=== PATIENT | male | born 1980 | race Caucasian/White ===

== ENCOUNTER → 2024-05-12 10:56 | Outpatient (REF) | payer OTHER, SELFPAY | LOC: PAVMRI 10:56 | PROVIDERS: ATTENDING PHYSICIAN Orthopaedic Surgery; FAMILY PHYSICIAN Family Medicine | DX: S83.242A Other tear of medial meniscus, current injury, left knee, initial encounter (principal) | CPT/HCPCS: 70030; 73721 ==

== ENCOUNTER 2025-05-20 12:00 | Inpatient (IN) | payer OTHER, SELFPAY ==
[2025-05-19] VITALS (7 sets, daily range): BP systolic 113–143; BP diastolic 70–94; BMI 49.1
[2025-05-19 16:04] LABS: Glucose - Point of Care 99 mg/dl (70-99)
[2025-05-19 16:12] LABS: Hematocrit 39.9 % (39.0-52.0); Hemoglobin 12.1 g/dL (13.0-18.0); Mean Corp Hgb Conc. 30.3 g/dL (33.0-37.0); Mean Corpuscular Volume 66.9 fL (80.0-94.0); Nucleated Red Blood Cells % 0 % (-); Platelet Count 263 10^3/uL (130-400); Red Cell Dist. Width 18.4 % (11.5-14.5)
--- NOTE | 2025-05-19 16:21 | ED.GENMED ---
History of Present Illness
General
Chief Complaint: Fainting/Passed Out
Source: patient
Exam Limitations: none
Time Seen by Provider: 05/19/25 15:58
History of Present Illness
History of Present Illness:
44yoM with a history of type 2 diabetes, hyperlipidemia, obesity, and NORTH on CPAP presenting via EMS for evaluation after a syncopal episode. Patient was on his lunch break today and was sitting in his friend's car watching a YouTube video. He
suddenly started to feel lightheaded like his blood sugar was low. He then lost consciousness and was unconscious for about 1 minute. His friend told him it looked like he was choking. When he came to, patient ambulated out of his friend's car
into his car and again started to feel dizzy. His boss told him to sit down and called 911. Patient had a third episode of lightheadedness when EMS arrived. Initial EKG showed a heart rate of 37 BPM and he was given 1mg IV atropine with
improvement. He denies any dizziness currently but does feel fatigued. He denies any associated chest pain, palpitations, shortness of breath.
Past History
Past History
ED Past Medical History: Other (Seasonal allergies)
ED Past Surgical History: Urological; Negative Cholecystectomy
Social History
Tobacco: Non-smoker
Alcohol: None
Drug: None
Personal: Single
Living: with family
Employment: Employed
Family History
Family History: Other (Noncontributory)
Phy Exam
General Physical Exam
General Presentation: well appearing and no apparent distress
General Skin: warm and dry
General Habitus: normal and obese
General Mental: alert
ENT Exam
ENT Exam: normocephalic
Cardiovascular Exam
Cardiovascular Exam: no edema, no murmur and tachycardia
Pulmonary Exam
Pulmonary Exam: lungs clear, no respiratory distress, no rales, no crackles, no rhonchi and no wheezing
Neurological Exam
Neurological Exam: alert
[place] Coma Scale
Eye Opening: Spontaneous
Verbal Response: Oriented
Motor Response: Obeys Commands
GCS Total Score: 15
Skin Exam
Skin Exam: normal color and warm/dry
Psychiatric Exam
Psychiatric Exam: normal mood/affect
Course
Orders/Labs/Results
Orders:
Orders
05/19/25 15:50
Electrocardiogram (*1) Urgent
Reason for Study: Vertigo / Dizzy
EKG- Treatment ONCE
05/19/25 16:03
Complete Blood Count/With Diff Urgent
05/19/25 16:20
Add On- LAB Urgent
Tests Added?: TSH, magnesium
Cardiac Monitoring- Treatment ONCE
05/19/25 16:37
Comprehensive Metabolic Panel Urgent
Magnesium Urgent
Comment: ADD ON
TSH Urgent
Comment: ADD ON
Troponin I Urgent
05/19/25 17:13
Lyme Progressive Urgent
Abnormal Lab Results
05/19/25 05/19/25
16:03 16:37
WBC 12.0 H 10^3/uL
(4.8-10.8)
Hgb 12.1 L g/dL
(13.0-18.0)
MCV 66.9 L fL
(80.0-94.0)
MCH 20.3 L pg
(27.0-31.0)
MCHC 30.3 L g/dL
(33.0-37.0)
RDW 18.4 H %
(11.5-14.5)
Absolute Neuts (auto) 8.3 H 10^3/uL
(1.4-6.5)
Absolute Monos (auto) 0.7 H 10^3/uL
(0.1-0.6)
Chloride 109 H mmol/L
(98-107)
Glucose 109 H mg/dl
(70-99)
ALT 57 H U/L
(0-50)
05/19/25 16:03
05/19/25 16:37
Vital Signs
Initial and Last Documented VS:
Initial Vital Signs
Temp Pulse Resp BP Pulse Ox
98.0 F 57 22 121/70 98
05/19/25 15:48 05/19/25 15:48 05/19/25 15:48 05/19/25 15:48 05/19/25 15:48
Last Documented Vital Signs
Temp Pulse Resp BP Pulse Ox
98.0 F 98 22 119/83 99
05/19/25 15:48 05/19/25 17:15 05/19/25 17:15 05/19/25 17:00 05/19/25 17:15
MDM/Problems Addressed
Differential Diagnosis Includes:
44yoM here after a syncopal episode followed by 2 near syncopal episodes. S/p 1mg IV atropine prehospital for a HR of 37. Now feeling much better and HR around 100 during initial exam. Prehospital EKG was reviewed which initially showed
third-degree heart block. Patient in normal sinus rhythm on the monitor and EKG on arrival also confirms NSR. Differential diagnosis includes but is not limited to: Intermittent heart block, electrolyte abnormality, thyroid dysfunction
Initial ED plan: Check cardiac labs, magnesium, and TSH. Will consult cardiology.
*Pulse Oximetry
SaO2: 98
Oxygen Mode of Delivery: Room air
Patient hypoxic: no (98%)
*EKG
Interpreted by ED Provider?: Yes
EKG Intrepretation Date: 05/19/25
Heart Rate: 56
Rate: bradycardiac
Rhythm: sinus
[place]: normal axis
Interval: normal interval
QRS Pattern: right bundle branch block
Ischemia: no ischemia
*Critical Care Note
Total Time (30-74mins, 75-104mins- exclusive of procedures): Not Applicable
Update Note
Update Note:
Labs overall unremarkable including normal electrolytes, TSH, and troponin. Patient evaluated by cardiology and plan is for cardiac monitoring and echocardiogram in the morning. Patient admitted for further evaluation and management.
ED Attending Note
-
Portions of this chart may have been created with voice recognition software.� Occasional wrong word or��sound alike� substitutions may have occurred due to the inherent limitations of voice recognition software.
Discharge Plan
Departure
Patient Disposition: Admit
Date of Disposition: 05/19/25
Time of Disposition: 17:36
Presentation/result/management discussed w/ accepting MD/DO: Hospitalist
Discharge Problem:
Syncope, Third degree heart block
Prescriptions:
No Action
famotidine 40 MG tablet
40 mg PO HS
loratadine 10 MG tablet
10 mg PO PRN PRN (Reason: allergies)
ibuprofen 200 MG tablet
600 mg PO QIDPRN PRN (Reason: pain) Qty: 1 0RF
oxycodone-acetaminophen 5 MG/325 MG tablet
1 - 2 tab PO Q4HPRN PRN (Reason: pain not relieved by ibuprofen) Qty: 15 0RF
Interventions
Interventions:
*Risk Screen - Suicide Last Done: 05/19/25 15:48
*General Assessment Last Done: 05/19/25 15:48
*Neglect/Abuse Screening Last Done: 05/19/25 15:48
*ED- Fall Risk Assessment Last Done: 05/19/25 15:48
ED- Cardiac Assessment Last Done: 05/19/25 16:50
ED- Neurological Assessment Last Done: 05/19/25 16:50
Discharge Date and Time
Print Language: SERBIAN
[2025-05-19 17:04] LABS: ALT (SGPT) 57 U/L (0-50); AST (SGOT) 42 U/L (17-59); Albumin 4.0 g/dl (3.5-5.0); Alkaline Phosphatase 69 U/L (38-126); Blood Urea Nitrogen 20 mg/dl (9-20); Calcium 8.7 mg/dl (8.4-10.2); Carbon Dioxide 25 mmol/L (22-30); Chloride 109 mmol/L (98-107); Estimated Creatinine Clearance > 125 ml/min; Glucose 109 mg/dl (70-99); Magnesium 2.1 mg/dl (1.6-2.3); Potassium 3.9 mmol/L (3.5-5.1); Sodium 140 mmol/L (135-145); Total Protein 7.2 g/dl (6.3-8.2); eGFR > 60.00
[2025-05-19 17:17] LABS: Troponin I < 0.012 ng/ml
--- NOTE | 2025-05-19 17:21 | CON.CAR ---
Consultation
Consultation Request
Date/Time Consultation Requested: 05/19/25 4:30pm
Date/Time Consultation Performed: 05/19/25 5:15pm
Requesting Provider: MITZI Cheng
Performing Provider: Brady Foley MD
Reason for Consultation: syncope
Medical History
-
Chief Complaint: syncope
History of Present Illness:
44-year-old male with past medical history of type 2 diabetes, obesity, hypertension, and hyperlipidemia presents with an episode of syncope. Patient was sitting in his car watching YouTube when he suddenly felt lightheaded and passed out for about
1 minute. When he awoke they called 911 he was found to be with a heart rate of 37 and incomplete heart block. He was given IV atropine 1 mg and clinically felt much improved. Upon arrival in the emergency room he was in sinus rhythm with a right
bundle branch block. He denies any chest pain, shortness of breath, orthopnea, PND, edema. He has no fevers or chills. [place] was in the [place] and does have some mosquito bites was unaware of any tick bites. He has no known history of
thyroid disease. He does have sleep apnea and wears CPAP. He is comfortable now with no symptoms. He states he does not check her sugar at home but upon arrival emerged with sugar was normal.
Past Medical History
Past Medical History: HTN, Hypercholesterolemia and Other (Obstructive sleep apnea, obesity)
Past Surgical History: Urological
Social History
Tobacco: Non-Smoker
Alcohol: None
Drug: None
Personal: Single
Living: With Family
Employment: Employed
Family History
Family History: Hypertension
Allergies / Home Medications
Allergy/AdvReac Type Severity Reaction Status Date / Time
seasonal allergies Allergy nasal Uncoded 05/19/25 15:48
congestion
�Medication �Instructions �Recorded �Confirmed �Type
famotidine 40 mg tablet 40 mg PO HS Gastrointestinal issue 02/24/20 03/04/20 History
loratadine 10 mg tablet 10 mg PO PRN PRN allergies 03/03/20 03/04/20 History
ibuprofen 200 mg tablet 600 mg (3 x 200 mg) PO QIDPRN PRN 03/04/20 Rx
pain #1 tab
oxycodone-acetaminophen 5 mg-325 1 - 2 tab PO Q4HPRN PRN pain not 03/04/20 Rx
mg tablet relieved by ibuprofen #15 tabs
Review of Systems
-
History Source: Patient
Constitutional: Fatigue
EENT: No Symptoms
Respiratory: No Symptoms
Cardiac: Syncope
Abdomen/GI: No Symptoms
: No Symptoms
Musculoskeletal: Muscle Stiffness
Skin: Rash
Neurological: No Symptoms
Endocrine: No Symptoms
Hematologic/Lymphatic: No Symptoms
Physical Exam
Vital Signs
Temp Pulse Resp BP Pulse Ox
98.0 F 98 19 113/75 97
05/19/25 15:48 05/19/25 16:45 05/19/25 16:45 05/19/25 16:00 05/19/25 16:45
Lab Results
05/19/25 16:03
05/19/25 16:37
Troponin I < 0.012 ng/ml 05/19/25 16:37
Physical Exam
General: Well Developed, Well Nourished and No Apparent Distress
HEENT: Normocephalic and Anicteric
Respiratory: Clear and Non Labored Respirations
Cardiac: S1/S2 and Regular Rhythm
GI: Soft, Non Tender and Non Distended
Genito-urinary: No Costovertebral Tender
Skin: Warm, Dry and Rash (Diffuse papules on bilateral lower extremities,)
Neuro: Awake
Psych: Calm
Impression / Plan
-
Assessment:
Syncope with complete heart block and escape rhythm at 37
Status post atropine x 1 now in normal sinus rhythm with right bundle branch block
Diabetes type 2
Hypertension
Hyperlipidemia
Obstructive sleep apnea on CPAP
Obesity
Plan:
He presents with syncope and was found to be in complete heart block with an escape rate of 37 bpm. He was given atropine and feels much better.
Admit to telemetry. Continue to observe and follow his rhythm. Check TSH and Lyme profile. He was recently in the [place] but denies any clear tick bites.
He is not on any AV paulette blockers.
Would hold blood pressure medication for now.
Check troponin and check echo in AM.
Would hold off on permanent pacing for now based on his age but we will reassess in AM.
Continue CPAP at night with his history of sleep apnea.
Data Reviewed
-
EKG: Report Reviewed by me
Medical Tests (Nuc Med, Echo etc): Report Reviewed by me
Labs: Labs Reviewed by me
[2025-05-19 17:43] LABS: TSH 1.19 uIU/ml (0.47-4.68)
--- NOTE | 2025-05-19 17:50 | HPS.HSE ---
Addendum entered and electronically signed by Marcos Burnett MD 05/20/25 09:34:
44-year-old male with a past medical history of obesity, type 2 diabetes, and obstructive sleep apnea presents with syncope, and was found to be in third-degree heart block. He received IV atropine in the ED, and his heart rate is improved. He has
been seen by cardiology. Will monitor closely in the IVU, hold hydrochlorothiazide, trend troponins, check echocardiogram, and await further recommendations by cardiology. He brought his CPAP machine, continue home CPAP at bedtime. Parents at
bedside and updated.
I have personally seen and examined the patient on 05/19/25, and agree with the plan of care as documented by Bhumika Harrell PA-C.
Advance care planning discussed, patient is a full code.
All other issues as outlined by the advanced care practitioner.
Total time spent to see the patient on the floor, examine the patient, review data and lab results, discuss treatment plan with patient, nursing staff around 76 minutes.
Original Note:
Family Physician
-
Family Physician: Karson Silverman
Chief Complaint
-
Syncope
History of Present Illness
Patient is a 44 y/o male past medical history of hypertension, hyperlipidemia, diabetes mellitus, obstructive sleep apnea and morbid obestiy who presents following a syncopal episodes. Patient reports he was sitting in his when developed
dizziness/lightheadedness. He reports he did pass out for about a minute and his friend had to shake him to wake him up. He had a a second episode of dizziness, but did not pass out. They called EMS who then found patient to have a heart rate of
37 with incomplete heart block. He was given IV atropine 1mg. Upon my evaluation patient is feeling much improved and heart rate is much improved in the 90s. He denies any chest pain or palpitations. He denies any similar episode in the past. He
states he [place] in [place] recently and got a lot of mosquito bites but denies any tick bites.
Medical History
Past Medical History
Past Medical History: Reports Other
Additional Past Medical History:
Diabetes Mellitus, Type II
Essential Hypertension
Hyperlipidemia
Obstructive Sleep Apnea
Morbid Obesity due to Excess Calories
Past Surgical History: Reports Other
Additional Past Surgical History:
Cholecystectomy
Penile Surgery
[place] Teeth Extraction
Social History
Tobacco: Non-smoker
Alcohol: None
Family History
Family History: Not pertinent
Allergies / Home Medications
Allergies reflects when Allergies were last updated in [facility].
Home Medications with original date entered in [facility]
Allergy/Medication List:
Allergies
Allergy/AdvReac Type Severity Reaction Status Date / Time
seasonal allergies Allergy nasal Uncoded 05/19/25 15:48
congestion
Home Medications
biotin 1 mg tablet 1 mg PO DAILY 05/19/25
empagliflozin 10 mg tablet (Jardiance) 10 mg PO DAILY 05/19/25
hydrochlorothiazide 12.5 mg capsule 12.5 mg PO DAILY 05/19/25
ibuprofen 200 mg tablet (Advil) 400 mg PO Q6HPRN PRN headaches 05/19/25
loratadine 10 mg tablet (Claritin) 10 mg PO DAILY 05/19/25
rosuvastatin 5 mg tablet (Crestor) 5 mg PO DAILY 05/19/25
therapeutic multivitamin 1 tab PO DAILY 05/19/25
Review of Systems
-
A 12 point ROS was completed and negative except as noted: Yes
Constitutional: Denies Fever
Respiratory: Denies Cough or Trouble Breathing
Cardiac: Reports See HPI
Physical Exam
Vital Signs
Vital Signs
Temp Pulse Resp BP Pulse Ox
98.0 F 98 22 119/83 99
05/19/25 15:48 05/19/25 17:15 05/19/25 17:15 05/19/25 17:00 05/19/25 17:15
Physical Exam
General: Comfortable, Conversant and Morbidly Obese
HEENT: Anicteric and Moist mucous membranes
Respiratory: Clear and Non Labored Respirations
Cardiac: S1/S2 and Regular Rhythm; No Bradycardia
GI: Soft and Non Tender
Rectal: Deferred by Provider
Musculoskeletal: No Clubbing, No Cyanosis and No Edema
Skin: Warm and Dry
Neuro: Awake, Alert and Nonfocal/grossly intact
Psych: Calm
Laboratory Results
-
05/19/25 16:03
05/19/25 16:37
Laboratory Results
Total Bilirubin 0.7 mg/dl (0.2-1.3) 05/19/25 16:37
AST 42 U/L (17-59) 05/19/25 16:37
ALT 57 U/L (0-50) H 05/19/25 16:37
Alkaline Phosphatase 69 U/L (38-126) 05/19/25 16:37
Troponin I < 0.012 ng/ml 05/19/25 16:37
Data Reviewed
-
Lab Data: Labs Reviewed by me
Impression/Plan
-
Syncope with Complete Heart Block
-Patient evaluated by cardiology in the emergency department
-Patient is back in normal sinus rhythm following dose of atropine
-TSH within normal range
-Await Lyme Test
-Monitor on Telemetry
Diabetes Mellitus, Type II
-Continue Jardiance
-Monitor sugars and continue coverage insulin
Essential Hypertension
-Hold HCZT
-Monitor blood pressure
Hyperlipidemia
-Continue Crestor
Obstructive Sleep Apnea
-Continue CPAP - Patient will have family bring from home
Morbid Obesity due to Excess Calories
-Affects all aspects of care
DVT proph: SCDs
Code Status: Full Code
--- NOTE | 2025-05-19 20:34 | W.PN.UPDATE ---
Update Note
Progress Note Update
For billing purposes.
[2025-05-19] MEDS: TRIAMCINOLONE ACETONIDE 0.1% CREAM 1 APPLIC TOPICAL (21:41)
--- NOTE | 2025-05-19 23:43 | PTCARENOTE ---
Received pt from ED RN into room 2255 via wheelchair at approx 2100. Tele placed on pt, SR w/ HR in the 70's. pt denies any CP, SOB, or lightheadedness/dizziness. CPAP applied by RT. Oriented pt to room and call justin. Encouraged pt to call RN with
any questions/concerns or if needing assistance ambulating. Call justin within reach.
~2300 pt now resting in bed, SB w/ HR in the 50's. VS obtained and BP stable.
[2025-05-20 00:09] LABS: Glucose - Point of Care 127 mg/dl (70-99)
[2025-05-20 03:32] VITALS: BP 136/86
[2025-05-20 04:07] LABS: Hematocrit 40.6 % (39.0-52.0); Hemoglobin 12.3 g/dL (13.0-18.0); Mean Corp Hgb Conc. 30.3 g/dL (33.0-37.0); Mean Corpuscular Volume 66.7 fL (80.0-94.0); Platelet Count 284 10^3/uL (130-400); Red Cell Dist. Width 17.9 % (11.5-14.5)
[2025-05-20 04:55] LABS: Blood Urea Nitrogen 19 mg/dl (9-20); Calcium 8.8 mg/dl (8.4-10.2); Carbon Dioxide 25 mmol/L (22-30); Chloride 109 mmol/L (98-107); Estimated Creatinine Clearance > 125 ml/min; Glucose 110 mg/dl (70-99); Potassium 4.1 mmol/L (3.5-5.1); Sodium 140 mmol/L (135-145); eGFR > 60.00
[2025-05-20 08:08] VITALS: BP 138/88
[2025-05-20 08:36] LABS: Glucose - Point of Care 102 mg/dl (70-99)
[2025-05-20] MEDS: CRESTOR 5 MG PO (08:41)
[2025-05-20] MEDS: TRIAMCINOLONE ACETONIDE 0.1% CREAM 1 APPLIC TOPICAL ×2 (08:42→20:02)
--- NOTE | 2025-05-20 09:30 | W.PN.HOSP.TC ---
Today's Communication/Plan
-
see bold
Assessment / Plan
Assessment / Plan
HPI: 44-year-old male with a past medical history of obesity, type 2 diabetes, and obstructive sleep apnea presents with syncope, and was found to be in third-degree heart block. He received IV atropine in the ED, and his heart rate is improved.
Syncope with Complete Heart Block
-Patient is back in normal sinus rhythm following dose of atropine
-TSH within normal range
-Appreciate cardiology input, follow-up cardiac MRI results, Lyme test
-Based on cardiac MRI results, cardiology will determine if he needs a pacemaker
Diabetes Mellitus, Type II
-Hemoglobin A1c controlled at 6.9, continue Jardiance
-Monitor sugars and continue coverage insulin
Essential Hypertension
-Hold HCZT
-Monitor blood pressure
Hyperlipidemia
-Continue Crestor
Obstructive Sleep Apnea
-Continue CPAP - Patient will have family bring from home
Morbid Obesity due to Excess Calories
-Affects all aspects of care
DVT proph: SCDs
Code Status: Full Code
Updated parents at bedside 05/20
Total time spent to see the patient on the floor, examine the patient, review data and lab results, discuss treatment plan with patient, nursing staff around 40 minutes.
Physical Exam
General: Morbidly obese, no acute distress
HEENT: Normocephalic, Atraumatic, EOMI, MMM
Respiratory: Clear to Auscultation bilaterally
Cardiac: Normal S1/S2, Regular Rate and Rhythm
GI: Soft, Nontender, Nondistended, Normal Bowel Sounds
Extremities: No Clubbing, Cyanosis, or Edema
Neuro: Nonfocal/Grossly Intact
Anticipated Discharge: 24 - 48 hours
Subjective/Interval History
-
Date of Service: May 20, 2025
Patient reports feeling back to normal. No recurrence of syncope, near syncope, or lightheadedness. No fever, no vomiting.
Objective Data
-
Labs:
Laboratory Results
05/20/25
03:44
WBC 10.5
Hgb 12.3 L
Hct 40.6
Plt Count 284
Sodium 140
Potassium 4.1
Chloride 109 H
Carbon Dioxide 25
BUN 19
Creatinine 0.9
Glucose 110 H
Calcium 8.8
Vital Signs:
Vital Signs
Temp Pulse Resp BP Pulse Ox
98 F 56 20 136/86 96
05/20/25 08:10 05/20/25 06:00 05/20/25 08:10 05/20/25 03:32 05/20/25 08:10
I&O
05/19/25 05/20/25 05/21/25
06:59 06:59 06:59
Intake Total 360 / 360
Balance 360 / 360
[2025-05-20] MEDS: FARXIGA 10 MG PO (09:42)
[2025-05-20 09:59] LABS: Glycohemoglobin (HgbA1c) 6.9 % (4.0-5.6)
--- NOTE | 2025-05-20 10:08 | W.PN.CARDCBS ---
Addendum entered and electronically signed by Tyler Cowan MD 05/20/25 19:27:
He is currently comfortable, mom and dad are at bedside.
156/90, pulse 66, respiratory rate 20, afebrile
Obese, head neck exam unremarkable, lungs clear, regular rate and rhythm, no murmurs, JVD okay abdomen benign extremities without edema pulses okay,
Lyme test-negative
Cardiac MRI-normal, no evidence of late gadolinium enhancemen
Echo -normal systolic LV function no significant valvular abnormality
Telemetry-no further heart block
Hemoglobin A1c 6.9
Impression:
Syncope with complete heart block and escape rhythm at 37
Status post atropine x 1 now in normal sinus rhythm with right bundle branch block
Diabetes type 2
Hypertension
Hyperlipidemia
Obstructive sleep apnea on CPAP
Obesity
Plan:
He appears stable at the moment, but has evidence of high-grade heart block without apparent reversible etiology.
Will review with electrophysiology in a.m. and determine whether to proceed with permanent pacemaker.
Original Note:
Today's Communication / Plan
-
Check echo
Lyme titer pending
cardiac MRI
Follow on telemetry
Pending results of testing, will determine need for permanent pacemaker
Impression / Plan
-
Primary Resident Intern: none prior to admission
Assessment:
Syncope with complete heart block and escape rhythm at 37
Status post atropine x 1 now in normal sinus rhythm with right bundle branch block
Diabetes type 2
Hypertension
Hyperlipidemia
Obstructive sleep apnea on CPAP
Obesity
ECHO 05/20/25: pending
Plan:
-He presented with syncope and was found to be in complete heart block with an escape rate of 37 bpm. He was given atropine with improvement. He reports it felt similar to when his blood sugar is low however when sugar was checked was 144.
-Conducting 1:1 in SR on review of tele overnight. no recurrent CHB noted and feeling well. continue to avoid av paulette blocking agents
-echo pending
-TSH WNL
-lyme titer pending
-check cardiac MRI to rule out infiltrative process
-trop negative
-pending results of testing may need to consider for permanent pacing.
-Continue CPAP for obstructive sleep apnea.
-d/w nursing
Progress Note - Resident Intern
Subjective
Date of Service: May 20, 2025
Denies chest pain, shortness of breath, dizziness or lightheadedness overnight
Objective
Labs:
05/20/25 03:44
05/20/25 03:44
Labs
Hgb 12.3 g/dL (13.0-18.0) L 05/20/25 03:44
Hct 40.6 % (39.0-52.0) 05/20/25 03:44
Plt Count 284 10^3/uL (130-400) 05/20/25 03:44
Sodium 140 mmol/L (135-145) 05/20/25 03:44
Potassium 4.1 mmol/L (3.5-5.1) 05/20/25 03:44
BUN 19 mg/dl (9-20) 05/20/25 03:44
Creatinine 0.9 mg/dL (0.7-1.3) 05/20/25 03:44
Glucose 110 mg/dl (70-99) H 05/20/25 03:44
Troponins
05/19/25
16:37
Troponin I < 0.012
Vital Signs and I&O:
Vital Signs
Temp Pulse Resp BP Pulse Ox
98 F 56 20 136/86 96
05/20/25 08:10 05/20/25 06:00 05/20/25 08:10 05/20/25 03:32 05/20/25 08:10
Vital Signs
Temp Pulse Resp BP Pulse Ox
98 F 56 20 136/86 96
05/20/25 08:10 05/20/25 06:00 05/20/25 08:10 05/20/25 03:32 05/20/25 08:10
Intake & Output
05/18/25 05/19/25 05/20/25 05/21/25
07:59 07:59 07:59 07:59
Intake Total 360 / 360
Balance 360 / 360
Physical Exam
Physical Exam
GEN: No distress, awake, alert, oriented x3.
HEENT: supple, anicteric, mmm, EOMI
LUNGS: CTA bilaterally. Obese, no wheezes/rales
CV: Reg, S1/S2, no murmur
ABD: soft, BS+, NT/ND
EXT: No cyanosis, clubbing, edema
NEURO: Gross non-focal
SKIN: Warm, pink, dry. No rash
--- NOTE | 2025-05-20 10:20 | CARDSERVLU ---
Echocardiogram with [facility] completed after protocol screening completed. Allergies verified.
Patent IV site: L HAND___
IV site flushed with 0.9% NaCl pre and post administration.
Diluted bolus method utilized to enhance visualization of ventricular higgins.
Total volume given: ___4_ mL
Patient tolerated all procedures well without complications.
--- NOTE | 2025-05-20 10:54 | PTCARENOTE ---
Pt is AOx3, no complaints of pain or discomfort. Independent OOB. SR on tele monitor, VSS. Pt went for cardiac MRI today, ECHO completed this AM. Call justin within reach.
[2025-05-20 13:28] VITALS: BP 156/90
[2025-05-20 14:07] LABS: Glucose - Point of Care 88 mg/dl (70-99)
--- NOTE | 2025-05-20 15:30 | PTCARENOTE ---
rec'd Pt 1515, A,A+OX3 denies pain, Pt HR remains SR 60-70's on cardiac nurse specialist. Lungs clear decreased BS at bilat bases.
[2025-05-20 16:43] LABS: Lyme Antibody Screen, EIA Negative (Negative)
[2025-05-20 17:54] LABS: Glucose - Point of Care 102 mg/dl (70-99)
[2025-05-20 19:57] VITALS: BP 135/92
[2025-05-20] MEDS: CLARITIN 10 MG PO (20:03)
--- NOTE | 2025-05-20 21:49 | PTCARENOTE ---
Rec'd pt at change of shift. Pt AAO*3, VSS, and SR on TELE monitor. Pt denies any pain or discomfort but reports sinus pressure. HUSEYIN Ernst notified and received order for Claritin 10mg PO and given as ordered. Pt updated on plan of care
and now resting with call justin in reach. See MAR and flowchart for full pt care and assessment.
[2025-05-20 22:30] VITALS: BP 152/102
[2025-05-20 22:32] VITALS: BP 139/96
[2025-05-20 22:33] LABS: Glucose - Point of Care 98 mg/dl (70-99)
[2025-05-21] VITALS (12 sets, daily range): BP systolic 103–127; BP diastolic 60–88; BMI 47.1
[2025-05-21 04:34] LABS: Iron 70 ug/dl (49-181)
[2025-05-21 04:44] LABS: Total Iron Binding Capacity 306 ug/dl (261-462)
[2025-05-21 05:10] LABS: Ferritin 129.0 ng/ml (17.9-464.0)
[2025-05-21 05:25] LABS: Vitamin B12 552 pg/ml (239-931)
[2025-05-21 07:48] LABS: Glucose - Point of Care 204 mg/dl (70-99)
[2025-05-21] MEDS: FARXIGA 10 MG PO (08:21)
[2025-05-21] MEDS: CRESTOR 5 MG PO (08:21)
[2025-05-21] MEDS: TRIAMCINOLONE ACETONIDE 0.1% CREAM 1 APPLIC TOPICAL ×2 (08:22→22:41)
--- NOTE | 2025-05-21 13:11 | W.PN.CARDCBS ---
Addendum entered and electronically signed by Link Patino DO 05/21/25 17:20:
Update:
Patient requesting to proceed with implantation of dual-chamber pacemaker. Again following thorough and thoughtful discussion regarding pacemaker, patient meets criteria due to his paroxysmal AV block, syncope associated with his abnormal heart
rhythm. Patient without any identifiable reversible causes for his paroxysmal high degree AV heart block. Again regarding pacemaker implantation, we discussed pacemaker indications and device implant in detail. For implant there is an approximate
1:1000 risk of IL/stroke/ and a 1% risk of pneumothorax/tamponade/infection/bleeding. We also discussed post procedure implant restrictions including positions to avoid with implant arm for first six weeks after implant as well as driving
restrictions. I took time to answer all questions. Patient wished to proceed. Patient remains n.p.o., consent signed.
Addendum entered and electronically signed by Link Patino DO 05/21/25 14:33:
I saw and examined the patient.
The Wool Washer's note was reviewed and I agree with the note.
Comment:
Patient seen and examined. Patient resting comfortably in chair. Patient denies any chest pain, shortness of breath, lightheadedness, dizziness, near-syncope syncope or weakness.
Telemetry shows sinus rhythm with PACs. No evidence of high degree block or complete heart block.
EKG sinus rhythm without evidence of high degree AV block or complete heart block.
Workup so far has been unremarkable including cardiac MRI, 2D echocardiogram, and exercise nuclear stress test.
Regarding this patient, he experienced an episode of syncope likely the result of high degree AV block as demonstrated by the EMS ECG. Patient was sitting in his car when this occurred without prodrome or trigger. Following syncope, patient
reported feeling unwell and following evaluation and treatment by EMS brought to [facility] for evaluation. The concerning component of this is patient's unprovoked syncope with evidence of high degree AV block on ECG without known
reversible cause. Because of this, patient meets criteria for implantation of dual-chamber pacemaker due to his paroxysmal high degree AV block. Patient has no reversible causes or etiologies for this condition. Regarding pacemaker, we discussed
pacemaker indications and device implant in detail. For implant there is an approximate 1:1000 risk of IL/stroke/ and a 1% risk of pneumothorax/tamponade/infection/bleeding. We also discussed post procedure implant restrictions including
positions to avoid with implant arm for first six weeks after implant as well as driving restrictions. I took time to answer all questions. I spent extensive time speaking with patient regarding benefits, risks associated with pacemaker. Patient
stated that he was unsure about pacemaker and wanted to think about it. Patient stated that he would consider an alternative which could be wearing an event monitor and driving restriction. I stated that patient could not drive for at least 6
months. Patient verbalized understanding. Regarding our discussion on pacemaker, patient verbalized understanding regarding benefits, risks associated with pacemaker implantation the reasons for pacemaker implantation. Patient at this current
juncture does not wish to proceed with pacemaker and would like to think about it and discussed with his family. Again, patient verbalized understanding the risks associated with his condition.
Original Note:
Today's Communication / Plan
-
exercise nuclear stress test today
UDS negative
for possible PPM pending results of testing
patient asking about cardiac monitoring with no driving as option if remains without recurrence
Impression / Plan
-
Primary Bag Filler Machine Operator: none prior to admission
Assessment:
Syncope with complete heart block and escape rhythm at 37
Status post atropine x 1 now in normal sinus rhythm with right bundle branch block
Diabetes type 2
Hypertension
Hyperlipidemia
Obstructive sleep apnea on CPAP
Obesity
ECHO 05/20/25: definity used, EF 70%, no RWMA, no significant valvular disease
Plan:
-He presented with syncope and was found to be in complete heart block with an escape rate of 37 bpm. He was given atropine with improvement. He reports it felt similar to when his blood sugar is low however when sugar was checked was 144.
-Conducting 1:1 in SR on review of tele overnight. no recurrent CHB noted and feeling well. continue to avoid av paulette blocking agents
-echo with results as above
-cardiac MRI without evidence for diffuse infiltrative myocardial disease
-lyme negative
-TSH WNL
-exercise nuclear stress test today to assess for ischemia as etiology of symptoms. no CP. trop negative. does have risk factors
-UDS negative
-pending results of testing may need to consider for permanent pacing. NPO
-patient is hesitant to proceed with permanent pacing at this time. asking about avoiding driving and skilled nursing monitor as possibility
-Continue CPAP for obstructive sleep apnea.
-d/w nursing
Progress Note - Bag Filler Machine Operator
Subjective
Date of Service: May 21, 2025
no issues overnight
Objective
Labs:
05/20/25 03:44
05/20/25 03:44
Labs
Hgb 12.3 g/dL (13.0-18.0) L 05/20/25 03:44
Hct 40.6 % (39.0-52.0) 05/20/25 03:44
Plt Count 284 10^3/uL (130-400) 05/20/25 03:44
Sodium 140 mmol/L (135-145) 05/20/25 03:44
Potassium 4.1 mmol/L (3.5-5.1) 05/20/25 03:44
BUN 19 mg/dl (9-20) 05/20/25 03:44
Creatinine 0.9 mg/dL (0.7-1.3) 05/20/25 03:44
Glucose 110 mg/dl (70-99) H 05/20/25 03:44
Troponins
05/19/25
16:37
Troponin I < 0.012
Vital Signs and I&O:
Vital Signs
Temp Pulse Resp BP Pulse Ox
98.3 F 71 20 112/70 98
05/21/25 07:37 05/21/25 08:00 05/21/25 07:37 05/21/25 07:35 05/21/25 08:00
Vital Signs
Temp Pulse Resp BP Pulse Ox
98.3 F 71 20 112/70 98
05/21/25 07:37 05/21/25 08:00 05/21/25 07:37 05/21/25 07:35 05/21/25 08:00
Intake & Output
05/19/25 05/20/25 05/21/25 05/22/25
07:59 07:59 07:59 07:59
Intake Total 360 / 360 960 / 960
Balance 360 / 360 960 / 960
Physical Exam
Physical Exam
GEN: No distress, awake, alert, oriented x3. Obese
HEENT: supple, anicteric, mmm, EOMI
LUNGS: CTA bilaterally. no wheezes/rales
CV: Reg, S1/S2, no murmur
ABD: soft, BS+, NT/ND
EXT: No cyanosis, clubbing, edema
NEURO: Gross non-focal
SKIN: Warm, pink, dry. No rash
[2025-05-21 14:05] LABS: Glucose - Point of Care 78 mg/dl (70-99)
--- NOTE | 2025-05-21 15:09 | W.PN.HOSP.TC ---
Today's Communication/Plan
-
For permanent pacemaker today
Discharge tomorrow if cleared by cardiology
Assessment / Plan
Assessment / Plan
HPI: 44-year-old male with a past medical history of obesity, type 2 diabetes, and obstructive sleep apnea presents with syncope, and was found to be in third-degree heart block. He received IV atropine in the ED, and his heart rate is improved.
Syncope with Complete Heart Block
-Patient is back in normal sinus rhythm following dose of atropine
-TSH within normal range, Lyme titers negative
-Appreciate cardiology input, echo/cardiac MRI/stress test unremarkable
-For permanent pacemaker today
Microcytic anemia
- Iron studies adequate, B12 normal
Diabetes Mellitus, Type II
-Hemoglobin A1c controlled at 6.9, continue Jardiance
-Monitor sugars and continue coverage insulin
Essential Hypertension
-Hold HCZT
-Monitor blood pressure
Hyperlipidemia
-Continue Crestor
Obstructive Sleep Apnea
-Continue CPAP - Patient will have family bring from home
Morbid Obesity due to Excess Calories
-Affects all aspects of care
DVT proph: SCDs
Code Status: Full Code
Updated parents at bedside 05/20
Total time spent to see the patient on the floor, examine the patient, review data and lab results, discuss treatment plan with patient, nursing staff around 38 minutes.
Physical Exam
General: Morbidly obese, no acute distress
HEENT: Normocephalic, Atraumatic, EOMI, MMM
Respiratory: Clear to Auscultation bilaterally
Cardiac: Normal S1/S2, Regular Rate and Rhythm
GI: Soft, Nontender, Nondistended, Normal Bowel Sounds
Extremities: No Clubbing, Cyanosis, or Edema
Neuro: Nonfocal/Grossly Intact
Anticipated Discharge: Within 24 hours
Subjective/Interval History
-
Date of Service: May 20, 2025
No recurrence of syncope. No lightheadedness, no dizziness. No fever, no vomiting.
Objective Data
-
Labs:
Laboratory Results
05/20/25
03:44
WBC 10.5
Hgb 12.3 L
Hct 40.6
Plt Count 284
Sodium 140
Potassium 4.1
Chloride 109 H
Carbon Dioxide 25
BUN 19
Creatinine 0.9
Glucose 110 H
Calcium 8.8
Vital Signs:
Vital Signs
Temp Pulse Resp BP Pulse Ox
97.8 F 66 20 156/90 98
05/20/25 13:29 05/20/25 13:28 05/20/25 13:29 05/20/25 13:28 05/20/25 13:29
I&O
05/19/25 05/20/25 05/21/25
06:59 06:59 06:59
Intake Total 360 / 360 480 / 480
Balance 360 / 360 480 / 480
--- NOTE | 2025-05-21 17:08 | CM ---
pt is prev indep, lives with his father in a 2 storyhome. no dc plannin gneeds noted. plan is for dc to home when medically stable.
--- NOTE | 2025-05-21 17:30 | ITS.CL.PACE ---
Weatherization Field Technician - Pacemaker Implant
Pacemaker Implant
Procedure Report:
Procedure Date: 05/21/2025
Name of procedure:
1. Placement of a dual-chamber pacemaker with left bundle area pacing lead for conduction system pacing
2. Subclavian venography
History:
1. Patient is a pleasant 44-year-old male with past medical history significant for hypertension, dyslipidemia, obesity, sleep apnea with CPAP, diabetes mellitus type 2, and syncope in the setting of high degree AV block. Patient had syncopal
episode while sitting in his car without prodrome. Evaluated by EMS noted to have high degree AV block with continued symptoms. Workup during hospitalization unremarkable. Patient has right bundle branch block at baseline.
2. Please refer to H&P for complete history.
Indication:
Syncope
Symptomatic high degree block
No identifiable reversible cause for high degree block
Methods:
After informed consent was obtained, the patient was brought to the EP laboratory in a postabsorptive, nonsedated state. Peripheral IV access was established. Prophylactic antibiotics were administered prior to incision. Continuous ECG, blood
pressure, and pulse oximetry were initiated. Cardioversion patch electrodes were placed on the patient's chest and back. A grounding patch was applied to the skin. Sedation was administered by anesthesia services.
In order to define the extrathoracic portion of the subclavian vein and exclude significant venous obstruction or anomalous anatomy, subclavian venography was performed prior to the procedure. Using the patient's left peripheral IV, contrast was
injected and images were recorded. The left subclavian vein and SVC were found to be widely patent.
The left chest was prepared and draped in a sterile fashion. A time-out was performed. Local anesthesia was injected in the subcutaneous tissue in the infraclavicular area. An incision was made medial to the deltopectoral groove. The subcutaneous
tissue was dissected the level of the prepectoral fascia. A subcutaneous pocket was created. Under fluoroscopic guidance and with the assistance of the images from the venogram, 2 separate venipunctures were made using micropuncture and modified
Seldinger technique. These were performed in the extrathoracic portion of the subclavian vein. Guidewires were passed and two peel-away sheaths were placed, and used to advance leads into the circulation.
Fluoroscopy was used to determine likely anatomic site for left bundle branch pacing. The Medtronic C315 sheath was used to deliver the Medtronic 3830 Selectsecure pacing lead with the helix exposed just exposed from the sheath tip during continuous
monitoring when pacemapping the septum during gentle clockwise rotation to obtain a paced QRS morphology of a W pattern in lead V1. Once the suspected optimal site was identified, lead deployment was performed with several rapid rotations as paced
QRS morphology was intermittently monitored until a paced QRS complex in lead V1 demonstrated development of an R wave (qR or rSR). Unipolar pacing impedance dropped by approximately 100-200 ohms suggesting it had reached the left ventricular
subendocardial. Stable VEgm injury current is present throughout lead position and at end of case. Final unipolar pacing impedance is 1200 Ohms. Unipolar pacing threshold is stable at 1.0 V @ 0.4 ms. The patient had pre-existing right bundle branch
block morphology at baseline and a sharp high-frequency left bundle-branch potential was observed preceding the local ventricular electrogram. Final conduction system paced QRS complex duration is 108 ms, LVAT is 53 ms, and peak V5 -> peak V1 timing
is 65 ms. The C315 sheath was slit under fluoroscopy ensuring lead position and stability.
Next, the right atrial lead was positioned in the right atrial appendage. Adequate sensing and pacing parameters were found, and no diaphragmatic stimulation was seen with high-output pacing. Both sheaths were split, and the leads were secured to
the fascia with Ethibond ties.
The pocket was flushed with antibiotic solution and hemostasis was assured. The generator was connected to the leads and placed inside the pocket. The device was sutured to the fascia. Antibiotic envelope was used. The wound was closed with 3
running layers of absorbable suture, and steri-strips were applied. Dressing applied over steri-strips in standard fashion.
Following the procedure, the patient was taken to the recovery area in stable condition. A chest x-ray to be obtained post procedure as routine.
Lead parameters and device programming:
- RA Lead (Medtronic, Model 5076, # [id number]): Sensing 4.8 mV, Pacing threshold 0.75 V at 0.4 ms, Imp 836 ohm
- RV Lead (Medtronic, Model 3830, # [id number]): Sensing 12.4 mV, Pacing threshold 0.25 V at 0.4 ms, Imp 1026 ohm
- Device: Medtronic, Model W1 DR 01 pacemaker (# [id number]), programmed AAI�DDD mode switch on lower rate 50, upper tracking rate 170 bpm
Conclusions:
1. Successful placement of a dual-chamber pacemaker with conduction system pacing (LBBAP)
2. Subclavian venography
Recommendations:
- Return to patient room
- Chest x-ray tonight, [facility] in AM.
- IV antibiotics while the patient is admitted.
- OK to resume home medications as indicated
- Pressure dressing to be removed in AM, aquacell to remain until wound check
- Follow-up will be arranged in the office in 7-10 days post-discharge for incision check
Link Patino DO, FACC, RS
Clinical Cardiac Estate Tax Examiner
cc: Dr Tyler Cowan
[2025-05-21 19:03] LABS: Glucose - Point of Care 99 mg/dl (70-99)
[2025-05-21 19:31] LABS: Glucose - Point of Care 113 mg/dl (70-99)
[2025-05-21] MEDS: DILAUDID 0.25 MG IV (19:45)
[2025-05-21 22:40] LABS: Glucose - Point of Care 162 mg/dl (70-99)
--- NOTE | 2025-05-21 23:06 | PTCARENOTE ---
Pt returned from PPM placement ~2029. Pt is AAOx3 SR on the monitor EKG done VSS Left arm immobilizer in use. LCW dressing c/d/i CXR done. Call justin within reach.
[2025-05-22] VITALS (8 sets, daily range): BP systolic 102–119; BP diastolic 61–74
[2025-05-22] MEDS: ANCEF 5 IV ×2 (01:26→08:51)
[2025-05-22 04:16] LABS: Hematocrit 40.5 % (39.0-52.0); Hemoglobin 12.5 g/dL (13.0-18.0); Mean Corp Hgb Conc. 30.9 g/dL (33.0-37.0); Mean Corpuscular Volume 66.1 fL (80.0-94.0); Platelet Count 262 10^3/uL (130-400); Red Cell Dist. Width 18.1 % (11.5-14.5)
[2025-05-22 04:36] LABS: Blood Urea Nitrogen 18 mg/dl (9-20); Calcium 8.5 mg/dl (8.4-10.2); Carbon Dioxide 24 mmol/L (22-30); Chloride 108 mmol/L (98-107); Estimated Creatinine Clearance > 125 ml/min; Glucose 141 mg/dl (70-99); Potassium 4.6 mmol/L (3.5-5.1); Sodium 138 mmol/L (135-145); eGFR > 60.00
[2025-05-22 07:05] LABS: Glucose - Point of Care 115 mg/dl (70-99)
--- NOTE | 2025-05-22 08:05 | PTCARENOTE ---
Assumed care of pt from prev nsg shift; Pt AAOx3 w/no C/O CP or SOB. Pt w/'mild, 2/10 pain' at his new L chest wall PPM device site. Device site dressing C/D/I w/no signs or symptoms of bleeding or hematoma. Pt's VSS w/HR in the 70's & BP 106/61
this AM. Pt is SR on telemetry monitoring. Pt anticipating discharge for today. Pt w/call justin within reach & no addtl needs at this time.
[2025-05-22] MEDS: FLUSH (NSS) 2 FLUSH IV (08:51)
[2025-05-22] MEDS: FARXIGA 10 MG PO (08:51)
[2025-05-22] MEDS: CRESTOR 5 MG PO (08:51)
[2025-05-22] MEDS: TRIAMCINOLONE ACETONIDE 0.1% CREAM 1 APPLIC TOPICAL (08:52)
--- NOTE | 2025-05-22 10:26 | W.PN.CARDCBS ---
Today's Communication / Plan
-
Okay for discharge from cardiac standpoint
Impression / Plan
-
Primary Spouting Installer: none prior to admission
Assessment:
Syncope with complete heart block and escape rhythm at 37
Status post atropine x 1 now in normal sinus rhythm with right bundle branch block
Diabetes type 2
Hypertension
Hyperlipidemia
Obstructive sleep apnea on CPAP
Obesity
Pulmonary nodule
ECHO 05/20/25: definity used, EF 70%, no RWMA, no significant valvular disease
Plan:
Stable cardiac status status post pacemaker implantation
Patient had pulmonary nodule on chest x-ray post pacer, will defer to hospitalist regarding further imaging or follow-up. I informed him that he has a nodule. Report lists that he will be ACT 112.
Arrangements for cardiac follow-up in place.
Interrogation of pacemaker was satisfactory.
Okay for discharge from my standpoint.
Progress Note - Spouting Installer
Subjective
Date of Service: May 22, 2025:
He offers no complaints
106/61, pulse 74, head neck exam unremarkable, lungs are clear, pacer site looks clean, regular rate and rhythm, abdomen benign extremities without clubbing cyanosis or edema
Telemetry: Sinus rhythm, no heart block seen
ECG post pacemaker sinus rhythm, right bundle branch block
Chest x-ray dual-chamber pacemaker, no pneumo, conduction system pacing, possible pulmonary nodule, radiopaque rings are from the sling that the patient was wearing at the time of the x-ray.
Hemoglobin is 12.5, platelets 262, BUN and creatinine are 18 and 0.9
Sestamibi study was normal, cardiac MRI was normal, Echo was normal
Microcytic indices assessed by hospitalist
Objective
Labs:
05/22/25 03:57
05/22/25 03:57
Labs
Hgb 12.5 g/dL (13.0-18.0) L 05/22/25 03:57
Hct 40.5 % (39.0-52.0) 05/22/25 03:57
Plt Count 262 10^3/uL (130-400) 05/22/25 03:57
Sodium 138 mmol/L (135-145) 05/22/25 03:57
Potassium 4.6 mmol/L (3.5-5.1) 05/22/25 03:57
BUN 18 mg/dl (9-20) 05/22/25 03:57
Creatinine 0.9 mg/dL (0.7-1.3) 05/22/25 03:57
Glucose 141 mg/dl (70-99) H 05/22/25 03:57
Troponins
05/19/25
16:37
Troponin I < 0.012
Vital Signs and I&O:
Vital Signs
Temp Pulse Resp BP Pulse Ox
36.7 C 74 18 106/61 97
05/22/25 07:08 05/22/25 07:03 05/22/25 07:08 05/22/25 07:03 05/22/25 07:08
Vital Signs
Temp Pulse Resp BP Pulse Ox
36.7 C 74 18 106/61 97
05/22/25 07:08 05/22/25 07:03 05/22/25 07:08 05/22/25 07:03 05/22/25 07:08
Intake & Output
05/20/25 05/21/25 05/22/25 05/23/25
07:59 07:59 07:59 07:59
Intake Total 360 / 360 960 / 960
Balance 360 / 360 960 / 960
Physical Exam
Physical Exam
See above
[2025-05-22 12:34] LABS: Glucose - Point of Care 89 mg/dl (70-99)
--- NOTE | 2025-05-22 15:49 | W.PN.HOSP.TC ---
Today's Communication/Plan
-
Cleared by cardiology for discharge today
Assessment / Plan
Assessment / Plan
HPI: 44-year-old male with a past medical history of obesity, type 2 diabetes, and obstructive sleep apnea presents with syncope, and was found to be in third-degree heart block. He received IV atropine in the ED, and his heart rate is improved.
Syncope with Complete Heart Block
-Patient is back in normal sinus rhythm following dose of atropine
-TSH within normal range, Lyme titers negative
-Appreciate cardiology input, echo/cardiac MRI/stress test unremarkable
-S/p permanent pacemaker placement 05/21
-Cleared by cardiology for discharge, follow-up with cardiology in the office as scheduled, and his PCP in 1 week
Microcytic anemia
- Iron studies adequate, B12 normal
Diabetes Mellitus, Type II
-Hemoglobin A1c controlled at 6.9, continue Jardiance
-Monitor sugars and continue coverage insulin
Essential Hypertension
-Blood pressure soft, recommend holding hydrochlorothiazide upon discharge, can resume on 05/26
Hyperlipidemia
-Continue Crestor
Obstructive Sleep Apnea
-Continue CPAP - Patient will have family bring from home
Hepatosplenomegaly
-Recommend outpatient follow-up with GI
Right pulmonary nodule
- Recommend follow-up with pulmonology for monitoring
Morbid Obesity due to Excess Calories
-Affects all aspects of care
DVT proph: SCDs
Code Status: Full Code
Physical Exam
General: Morbidly obese, no acute distress
HEENT: Normocephalic, Atraumatic, EOMI, MMM
Respiratory: Clear to Auscultation bilaterally
Cardiac: Normal S1/S2, Regular Rate and Rhythm
GI: Soft, Nontender, Nondistended, Normal Bowel Sounds
Extremities: No Clubbing, Cyanosis, or Edema
Neuro: Nonfocal/Grossly Intact
Anticipated Discharge: Today
Subjective/Interval History
-
Date of Service: May 22, 2025
Patient reports feeling back to baseline. Denies lightheadedness, dizziness. No chest pain, no shortness of breath. No fever, no vomiting.
Objective Data
-
Labs:
Laboratory Results
05/22/25
03:57
WBC 12.4 H
Hgb 12.5 L
Hct 40.5
Plt Count 262
Sodium 138
Potassium 4.6
Chloride 108 H
Carbon Dioxide 24
BUN 18
Creatinine 0.9
Glucose 141 H
Calcium 8.5
Vital Signs:
Vital Signs
Temp Pulse Resp BP Pulse Ox
97.9 F 70 17 102/68 95
05/22/25 14:55 05/22/25 14:55 05/22/25 14:55 05/22/25 11:27 05/22/25 14:55
I&O
05/21/25 05/22/25 05/23/25
06:59 06:59 06:59
Intake Total 960 / 960 960 / 960
Balance 960 / 960 960 / 960
--- NOTE | 2025-05-22 16:49 | W.DCSUMMARY ---
Discharge Summary
Discharge Data
Date of Admission: 05/20/25
Date of Discharge: 05/22/25
-
Pending Results: No
Hospital Course
Discharge diagnosis:
Syncope with complete heart block and escape rhythm at 37
Status post atropine x 1 now in normal sinus rhythm with right bundle branch block
Diabetes type 2
Hypertension
Hyperlipidemia
Obesity
Pulmonary nodule
Hepatosplenomegaly
Obstructive sleep apnea on CPAP
Consults: Cardiology
Procedures:
05/21/2025 permanent pacemaker implantation
Echo: definity used, EF 70%, no RWMA, no significant valvular disease
Cardiac MRI:
1. No MRI evidence for diffuse infiltrative myocardial disease.
2. Global systolic LV function: Normal.
3. Global systolic RV function: Normal.
4. LV viability: Normal.
5. Moderate hepatosplenomegaly.
Hospital course:
44-year-old male with a past medical history of type 2 diabetes, hypertension, obstructive sleep apnea, and obesity who was admitted for syncope secondary to complete heart block. Patient received atropine prior to arrival. When he arrived in the
ED, he was in normal sinus rhythm with a right bundle branch block. He was seen in conjunction with cardiology, and monitored on telemetry. Echocardiogram, cardiac MRI, nuclear stress test were all unremarkable. He underwent permanent pacemaker
placement on 05/21/2025. He did well postoperatively.
Of note, patient was found to have incidental hepatosplenomegaly on his cardiac MRI. He is recommended to follow-up with GI in the office.
He was also found to have a right pulmonary nodule on his chest x-ray. He is recommended to follow-up with pulmonology in the office for monitoring.
His blood pressure was soft on the day of discharge. It is recommended that he hold his hydrochlorothiazide, and can resume on 05/26/2025.
Patient is medically stable and cleared by cardiology for discharge. He needs to follow-up with his PCP in 1 week, and cardiology in the office as scheduled.
Disposition: Home self-care
Discharge planning: Required 37 minutes
Discharge Plan
-
Patient Disposition: Home (Routine Discharge)
Discharge Diagnosis/Procedures: Heart block, s/p pacemaker implant, enlarged liver, enlarged spleen, right pulmonary nodule
Condition: Good
Diet: Low Fat, Low Cholesterol and Diabetic, Carb Controlled
Activity: As tolerated
Driving Restrictions: No driving for 1 week
Activity Restrictions/Additional Instructions:
Please follow-up with GI in the office for your enlarged liver and enlarged spleen.
Please follow-up with pulmonology in the office for monitoring of your pulmonary nodule.
Please follow-up with your PCP in 1 week, and cardiology as scheduled.
Stand Alone Forms: [facility] - Implanted Device
Referrals:
[facility] [Provider Group] - 05/28/25 2:00 pm
Referral Note: Post device incision check appointment
Ursula Burnett MD [Active, Gastroenterology] - in four to six weeks
Janey Dave DO [Active, Pulmonary Medicine] - in four to six weeks
Karson Silverman DO [Family Provider, Family Practice] - in one week
Prescriptions:
Continued
therapeutic multivitamin Tablet
1 tab PO DAILY
ibuprofen [Advil] 200 mg Tablet
400 mg PO Q6HPRN PRN (Reason: headaches)
loratadine [Claritin] 10 mg Tablet
10 mg PO DAILY
rosuvastatin [Crestor] 5 mg Tablet
5 mg PO DAILY
biotin 1 mg Tablet
1 mg PO DAILY
Jardiance 10 mg Tablet
10 mg PO DAILY
Held
hydrochlorothiazide 12.5 mg Capsule
12.5 mg PO DAILY
Hold Instructions: Resume on 05/26/25.
Discharge Orders:
Discharge Patient (As Directed); Ordered 05/22/25
Ordered By: Marcos Burnett
Care Plan Goals
Care Plan Goals:
Problem: Readiness for enhanced knowledge related to diagnosis and treatment plan
Goal: Understand your diagnosis and treatment plan needs, including medications if applicable.
Instructions: Know your diagnosis, underlying causes and treatment plan options, including medications if applicable. Consult with your health care team to learn about your diagnosis and treatment plan, including medications if applicable.
Discharge Date and Time
Print Language: UPPER SORBIAN
--- NOTE | 2025-05-22 17:23 | PTCARENOTE ---
Pt's IV line & telemetry D/C'd. Discussed D?C instructions w/pt & pt's mother. Pt left w/personal belongings incl cell phone & events intern.
== END 2025-05-22 17:19 | disposition home or self-care (01) | DRG 243 ==
LOC: IVU 12:00
PROVIDERS: Internal Medicine Cardiovascular Disease; Nurse Practitioner; Physician Assistant; Physician Assistant Medical; ADMITTING PHYSICIAN Family Medicine; CONSULT PHYSICIAN Internal Medicine Cardiovascular Disease; EMERGENCY PHYSICIAN Student in an Organized Health Care Education/Training Program; FAMILY PHYSICIAN Family Medicine
PROC: 4A02XM4 Measurement of Cardiac Total Activity, External Approach (ICD-10-PCS; 2025-05-21)
PROC: B5171ZZ Fluoroscopy of Left Subclavian Vein using Low Osmolar Contrast (ICD-10-PCS; 2025-05-21)
PROC: 3E033HZ Introduction of Radioactive Substance into Peripheral Vein, Percutaneous Approach (ICD-10-PCS; 2025-05-21)
PROC: 02H63JZ Insertion of Pacemaker Lead into Right Atrium, Percutaneous Approach (ICD-10-PCS; 2025-05-21)
PROC: 02HK3JZ Insertion of Pacemaker Lead into Right Ventricle, Percutaneous Approach (ICD-10-PCS; 2025-05-21)
PROC: 0JH606Z Insertion of Pacemaker, Dual Chamber into Chest Subcutaneous Tissue and Fascia, Open Approach (ICD-10-PCS; 2025-05-21)
DX: I44.2 Atrioventricular block, complete (principal); Z68.42 Body mass index [BMI] 45.0-49.9, adult; R91.1 Solitary pulmonary nodule; R16.1 Splenomegaly, not elsewhere classified; R16.2 Hepatomegaly with splenomegaly, not elsewhere classified; D50.9 Iron deficiency anemia, unspecified; E11.9 Type 2 diabetes mellitus without complications; I10 Essential (primary) hypertension; E78.00 Pure hypercholesterolemia, unspecified; G47.33 Obstructive sleep apnea (adult) (pediatric); E66.01 Morbid (severe) obesity due to excess calories; J30.2 Other seasonal allergic rhinitis; Z79.899 Other long term (current) drug therapy
CPT/HCPCS: 33208; 71045; 75561; 78452; 80048; 80053; 80306; 82607; 82728; 82962; 83036; 83540; 83550; 83735; 84443; 84484; 85025; 85027; 86618; 93005; 93017; 93306; 99285; A9500; A9585; C1769; C1785; C1887; C1898; Q9950; Q9967

== ENCOUNTER → 2025-08-03 13:29 | Outpatient (REF) | payer OTHER, SELFPAY | LOC: MRI 13:29 | PROVIDERS: ATTENDING PHYSICIAN Student in an Organized Health Care Education/Training Program; FAMILY PHYSICIAN Family Medicine | DX: R16.2 Hepatomegaly with splenomegaly, not elsewhere classified (principal); K76.0 Fatty (change of) liver, not elsewhere classified | CPT/HCPCS: 74183; 76391; A9575 ==